=== PATIENT | male | born 1950 | race Caucasian/White ===

== ENCOUNTER 2025-02-23 09:27 | Outpatient (OUT) | payer MEDICARE, OTHER, SELFPAY ==
[2025-02-23 10:42] LABS: Anion Gap 13.4; BUN Creatinine Ratio 15.8; Calcium 9.4 mg/dL (8.5-10.1); Carbon Dioxide 29.6 mmol/L (21.0-32.0); Chloride 100 mmol/L (98-107); Estimated GFR (African America >60 (>=60 mL/min/1.73m^2); Estimated GFR (Non-African Ame 52 (>=60 mL/min/1.73m^2); Glucose 101 mg/dL (74-106); Sodium 139 mmol/L (136-145)
[2025-02-23 10:46] LABS: Estimated Average Glucose 123 mg/dL; Glycohemoglobin A1C 5.9 % (4.5-6.2)
== END 2025-02-23 09:28 | disposition home or self-care (01) ==
PROVIDERS: PCP Nurse Practitioner; Visit Provider Nurse Practitioner
DX: E11.8 Type 2 diabetes mellitus with unspecified complications (principal); N18.9 Chronic kidney disease, unspecified
CPT/HCPCS: 36415; 80048; 83036